=== PATIENT | male | born 1980 | race Caucasian/White ===

== ENCOUNTER 2025-01-02 01:21 | Emergency (ER) | payer MEDICAID ==
[~2025-01-02] VITALS: Ht 177.8 cm; Wt 67.0 kg
[2025-01-02 01:33] VITALS: BP 133/83; PULSE 106; RESP 20; O2SAT 99
--- NOTE | 2025-01-02 04:02 | Physician Documentation ---
History of Present Illness ~ Chief Complaint: Narcotic Withdrawl Stated Complaint: BACK PAIN Time Seen by MD: 04:01 HPI Patient presents to the emergency room crusting help with narcotic withdrawal and alcohol withdrawal. Denies any hallucinations. He only he is seeking medication help him through the night until he is able to get his medication in the morning. Medication Reconciliation Allergies: Coded Allergies: No Known Allergies (Unverified , 01/02/25) Review of Systems ROS All review of systems negative except as per HPI Physical Exam Vital Signs: Temperature: 98.8, Source: Temporal, Heart Rate: 106, Respiratory Rate: 20, BP: 133/83, Pulse Oximetry: 99, Weight: 66.950 Oxygen Flow Rate: 0 Physical Exam General: Patient is awake, alert, oriented x4 in no acute distress. Diaphoretic Head: Normocephalic and atraumatic. Eyes: Conjunctival normal. EOMI. PERRL. ENT: Mucous membranes moist. Neck: Supple, trachea is midline. Chest: Clear to auscultation bilaterally without rales, rhonchi, or wheezes. There is no accessory muscle use or retractions. Cardiac: Tachycardic and regular without murmurs, gallops, or rubs. Progress Results/Orders Results/Orders Orders - CRUZITO LARA MD Buprenorphine/Naloxone Sl Film (Suboxone (01/02/25 04:25) Completed Orders - CRUZITO LARA MD Lorazepam Tablet (Ativan Tablet) (01/02/25 02:00) Medications Received in ER Medications (Trade) Dose Ordered Sig/Lobo Route PRN Reason Start Time Stop Time Status Last Admin Dose Admin (Ativan tablet) 1 mg ONCE ONCE PO 01/02/25 02:00 01/02/25 02:01 DC 01/02/25 02:07 1 MG Vital Signs 01/02/25 01:33 Temp 98.8 Pulse 106 Resp 20 B/P (MAP) 133/83 Pulse Ox 99 O2 Flow Rate 0 Medical Decision Making Findings Patient presents to the emergency room with withdrawal symptoms as per HPI. He is not in DTs. He is feeling better after 1 mg of p.o. Ativan. He is requesting one sublingual Suboxone. He has had Suboxone before in his familiar with possible withdrawals. ER precautions discussed. The need to get his medications in the morning also discussed. Departure Disposition: HOME / SELF CARE / HOMELESS Impression: Primary Impression: Alcohol withdrawal Additional Impression: Acute narcotic withdrawal Condition: Improved Discharge Instructions: Alcohol Withdrawal Syndrome, [id number] Referrals: NO PRIMARY CARE PROVIDER (PCP) Education Educated: Patient Educated regarding: diagnosis, treatment, need for follow up Signature Scribe Signature: No scribe Attestation: The note accurately reflects work and decisions made by me.Cruzito Lara MD 01/02/25 04:26 CRUZITO LARA MD Jan 02, 2025 04:02
[2025-01-02 04:27] VITALS: TEMP 98.8
[2025-01-02] MEDS: buprenorphine/naloxone 8MG-2MG SUBlingual film SL ONE (04:36)
== END 2025-01-02 04:41 | disposition home or self-care (01) ==
LOC: ER 01:23
DX: F10.239 Alcohol dependence with withdrawal, unspecified (principal); F11.23 Opioid dependence with withdrawal; Y90.9 Presence of alcohol in blood, level not specified
CPT/HCPCS: 99283